=== PATIENT | female | born 1985 | race Caucasian/White ===

== ENCOUNTER 2021-09-05 12:31 | Emergency (ER) | payer MEDICARE, OTHER ==
[~2021-09-05] VITALS: Ht 167.6 cm; Wt 67.0 kg
[2021-09-05 12:43] VITALS: BP 118/78
== END 2021-09-05 15:01 | disposition left against medical advice (07) ==
LOC: ER 12:31
DX: Z53.21 Procedure and treatment not carried out due to patient leaving prior to being seen by health care provider (principal)
CPT/HCPCS: 93005; 99283